=== PATIENT | female | born 1985 | race Caucasian/White ===

== ENCOUNTER 2017-02-25 18:13 | Emergency (ER) | payer OTHER ==
[~2017-02-25] VITALS: Ht 154.9 cm; Wt 68.0 kg
[2017-02-25 18:15] VITALS: BP_SYST 125
[2017-02-25] MEDS ORDERED: methylPREDNISolone SOD SUCC/PF 62.5 MG/ML VIAL IVP ONE (18:30)
[2017-02-25] MEDS ORDERED: EPINEPHrine 1 MG/ML AMP IM ONE (19:30)
[2017-02-25 20:26] VITALS: BP_SYST 107
== END 2017-02-25 20:26 | disposition home or self-care (01) ==
LOC: SED 18:13
DX: T78.49XA Other allergy, initial encounter (principal); E07.9 Disorder of thyroid, unspecified; X58.XXXA Exposure to other specified factors, initial encounter
CPT/HCPCS: 96372; 96374; 99284; J0171; J2930